=== PATIENT | female | born 2000 | race African-American/Black ===

== ENCOUNTER 2021-08-10 00:43 | Emergency (ER) | payer OTHER ==
[2021-08-10 01:02] VITALS: BP 108/69; PULSE 83; TEMP 99.7; BMI 19.6
[2021-08-10] MEDS ORDERED: PSEUDOEPHEDRINE HCL 60 MG TABLET PO ONE (01:16)
[2021-08-10] MEDS ORDERED: PSEUDOEPHEDRINE HCL 60 MG TABLET ONE (02:04)
== END 2021-08-10 03:32 | disposition home or self-care (01) ==
LOC: JER 00:43
DX: R09.81 Nasal congestion (principal); B34.9 Viral infection, unspecified
CPT/HCPCS: 0241U-QW; 99283-25